=== PATIENT | male | born 1990 | race Hispanic/Latino ===

== ENCOUNTER 2016-04-22 23:29 | Emergency (ER) | payer OTHER ==
[~2016-04-22] VITALS: Ht 157.5 cm; Wt 57.7 kg
[2016-04-22 23:31] VITALS: BP 129/88; PULSE 87; RESP 20; O2SAT 99
--- NOTE | 2016-04-22 23:49 | ED.REPORT ---
HPI-Overdose/Alcohol Toxicity Date of Service Apr 22, 2016 ED Provider: Giuseppe Coon MD Patient is a 26-year-old male who presents to the ED accompanied by his mother due to alcohol intoxication. Patient is slow to answer questions and presents lethargic due to intoxication. Via patient's mother he was out drinking with friends tonight and had at least 8 shots of alcohol. Pt reports that he is having trouble breathing, dizziness, and nausea. He needed assistance walking from the car to the ER. Nursing Notes Stated Complaint: ALCOHOL OD Chief Complaint: Substance Abuse Nursing Notes Reviewed: Yes ([place] not reconciled) Allergies: Coded Allergies: No Known Allergies (Verified , 09/16/12) Scheduled PRN Ondansetron ODT (Ondansetron ODT) 8 Mg Tab.rapdis 8 MG PO Q4H PRN PRN For Nausea General Time Seen by Provider: 23:49 Chief Complaint Intoxicated, alcohol Hx Obtained From: Patient, Other family... (Mother) Arrived By: Walk-in Onset Occurred: 1 - 4 hours ago Symptom Duration: Since onset Severity: Current: No pain currently Past Medical History Past Medical History denies Past Surgical History denies Smoking History Unknown if Ever Smoker Social History Alcohol Use: 3-5 per day Drug Use: Denies drug use Other Social History: Good social support, Local resident Ambulatory Status Independent Review of Systems Unable to Obtain ROS Intoxicated Physical Exam Initial Vital Signs Vital Signs (First) Date Time Temp Pulse Resp B/P Pulse Ox O2 Delivery O2 Flow Rate FiO2 04/22/16 23:31 36.0 87 20 129/88 99 04/23/16 01:25 Room Air Initial VS: Reviewed, Vital signs normal Head / Eyes: Atraumatic, Normocephalic, PERRL ENT: Mucous membranes moist, Conjunctiva normal, No scleral icterus Extremities: Vascular intact, Neuro intact, No swelling, No tenderness Skin: Warm, Dry, No cyanosis General/Constitutional: Awake, No acute distress Behavior: Positive: Appears intoxicated smells of alcohol drowsy opens eyes and answers commands no visible signs of trauma ataxic gait Respiratory / Chest: Atraumatic, Breath sounds NL, Breath sounds = bilat, No respiratory distress, No rales, No rhonchi, No wheezing Cardiovascular: Heart rate NL, Regular rhythm, Heart sounds NL, No gallop, No murmurs, No rubs Abdomen: Atraumatic, Soft, Non-tender, McBurney's non-tender, No guarding, No rebound Speech: Positive: Slow able to answer limited questions speech is clear Psychiatric: Not suicidal, Not homicidal, No hallucinations Re-Eval/Medical Decision Med Decision/Clinical Course This is a 26-year-old male brought by the mother with concern for alcohol toxicity. Patient apparently made some sort of goal of becoming healthier and going to the gym, and set today as the last day that he might drink alcohol, so apparently got together with some friends and there was concern that he drank far too much alcohol, and he called his mother for assistance around 11. She found him slurred and ataxic and was worried that climbing alcohol levels and toxicity. There is no history of trauma. The patient has had a prior ED visit for alcohol related issues in the past, does not drink daily regularly. On initial exam he is moderately intoxicated, but opens his eyes answers questions, speech is fairly clear. He was noted to be ataxic by staff from assistance in. He was observed, and serial breathalyzers demonstrated a decline. He did have some nausea and received a dose of ondansetron. Reexam he is now alert, his speech is clear, he is no longer ataxic, and he does not demonstrate signs of clinical intoxication, and he is additionally legally sober. Given his improvement, but reclining EtOH-I am not finding indication he requires further period of observation and he can be safely discharged in the company of his mother. His discharge and both are in good condition. Routine precautions reviewed. Source of Hx: Old records Re-Evaluation/Progress : Time of Eval: 01:15 Patient Status: Condition improved Re-Evaluation/Progress Note: Pt rechecked. Informed pt of diagnosis and plan for treatment. Pt understands and agrees with plan. F/U and RTER warnings given. All questions addressed. Differential Diagnosis: Positive: Alcohol abuse, Intoxication, alcohol, Negative: Overdose, other, Suicidal attempt, Suicidal gesture Counseled Regarding: Diagnosis, Lab results, Need for follow-up, When/why to return to ED Discharge & Departure Impression: Primary Impression: Alcohol intoxication Complication of substance-induced condition: uncomplicated Qualified Code: F10.120 - Alcohol abuse with intoxication, uncomplicated Disposition: Home Discharge Condition All VS Reviewed: Yes Condition: Stable Additional Instructions: 1. Stay away from alcohol. 2. Drink plenty of water 3. Rest. 4. If needed take ibuprofen 400mg three times a day. 5. Return if new or worsening symptoms. Referrals: Wendy Leavitt MD (PCP) Veronique Attestation Portion of this note were transcribed by George Jones. I, Dr. Coon, personally performed the history, physical exam, and medical decision-making: I reviewed and confirmed the accuracy for the information in the transcribed note. Signed by: veronique Gorman, 04/22/16 [id number] copies to: Wendy Leavitt MD, Matthew F MD Apr 22, 2016 23:49 GEORGE JONES Apr 23, 2016 00:05
[2016-04-22] MEDS ORDERED: Ondansetron 8 mg ODT Tablet PO ONE (23:55)
[2016-04-23] MEDS ORDERED: Ondansetron 2 mg/mL 2 mL Inj IVPUSH ONE (00:05)
[2016-04-23] MEDS ORDERED: ONDA8TAB10 PO (01:14)
[2016-04-23] MEDS ORDERED: Ondansetron 8 mg ODT Tablet PO ONE (01:15)
[2016-04-23 01:25] VITALS: BP 98/60; PULSE 71; RESP 18; O2SAT 97
== END 2016-04-23 01:22 | disposition home or self-care (01) ==
LOC: SED 23:29
DX: F10.120 Alcohol abuse with intoxication, uncomplicated (principal); R53.83 Other fatigue; R06.00 Dyspnea, unspecified; R42 Dizziness and giddiness; R11.0 Nausea